=== PATIENT | male | born 1955 | race Caucasian/White ===

== ENCOUNTER 2018-04-28 17:24 | Inpatient (IN) | payer BC ==
[~2018-04-28] VITALS: Ht 180.3 cm; Wt 96.6 kg
[2018-04-28 17:27] VITALS: Ht 180.3 cm; Wt 96.6 kg
[2018-04-28 18:04] LABS: BASOPHIL % 0.5 % (0-2); PLATELET COUNT 264 x10^3mcL (130-400); RED CELL DISTRIBUTION WIDTH 13.8 % (11.5-14.5)
[2018-04-28 18:13] LABS: CALCIUM 9.1 mg/dL (8.5-10.1); CARBON DIOXIDE 31.1 mmol/L (21-32); CHLORIDE SERUM 102 mmol/L (98-107); CREATININE SERUM 0.9 mg/dL (0.7-1.3); GFR1 > 60 mL/min; GLUCOSE SERUM 100 mg/dL (74-106); POTASSIUM SERUM 4.6 mmol/L (3.5-5.1); SODIUM SERUM 141 mmol/L (136-145)
[2018-04-28 18:18] LABS: ALBUMIN 3.6 g/dL (3.4-5.0); ALKALINE PHOSPHATASE 60 U/L (46-116); ALT/SGPT 19 U/L (16-63); AST/SGOT 15 U/L (15-37); BILIRUBIN TOTAL 0.43 mg/dL (0.20-1.00); TOTAL PROTEIN, SERUM 7.7 g/dL (6.4-8.2)
[2018-04-28] MEDS ORDERED: HYDROCHLOROTH12.5 M2 PO (19:36)
[2018-04-28] MEDS ORDERED: FERROUS SULFAT325 M2 PO (19:36)
[2018-04-28] MEDS ORDERED: CRESTOR10 M1 PO (19:37)
[2018-04-28] MEDS ORDERED: CARVEDILOL6.25 M1 PO (19:37)
[2018-04-28] MEDS ORDERED: METFORMIN HYDR500 M1 PO (19:37)
[2018-04-28] MEDS ORDERED: BENAZEPRIL HYDR20 M1 PO (19:37)
[2018-04-28] MEDS ORDERED: TES100 PO (19:38)
[2018-04-28] MEDS ORDERED: NITROGLYCERIN0.4 MG SL (19:39)
[2018-04-28] MEDS ORDERED: VENTOLIN H0.09 MG/A1 INH (19:39)
[2018-04-28 19:54] LABS: MAGNESIUM 2.2 mg/dL (1.8-2.4); PHOSPHOROUS 3.5 mg/dL (2.5-4.9)
[2018-04-28 19:55] LABS: CHOLESTEROL/HDL RATIO 2.1
[2018-04-28 20:59] VITALS: BP 140/78
[2018-04-28 22:27] VITALS: BP 129/73
[2018-04-29 05:49] VITALS: BP 120/68
[2018-04-29 07:52] LABS: CALCIUM 8.6 mg/dL (8.5-10.1); CARBON DIOXIDE 29.4 mmol/L (21-32); CHLORIDE SERUM 104 mmol/L (98-107); CREATININE SERUM 0.7 mg/dL (0.7-1.3); GFR1 > 60 mL/min; GLUCOSE SERUM 77 mg/dL (74-106); MAGNESIUM 2.3 mg/dL (1.8-2.4); PHOSPHOROUS 3.6 mg/dL (2.5-4.9); POTASSIUM SERUM 3.7 mmol/L (3.5-5.1); SODIUM SERUM 140 mmol/L (136-145)
[2018-04-29 07:56] LABS: BASOPHIL % 0.3 % (0-2); PLATELET COUNT 248 x10^3mcL (130-400)
[2018-04-29 09:34] VITALS: BP 118/65
[2018-04-29 10:02] LABS: microscopic required? NO
[2018-04-29 10:28] LABS: urine erythrocyte NEGATIVE (NEGATIVE)
[2018-04-29 10:36] LABS: AMPHETAMINE QUAL UR NONE DETECTED (See below)
[2018-04-29 12:20] VITALS: BP 124/69
[2018-04-29 17:12] VITALS: BP 143/78
[2018-04-29] MEDS ORDERED: IPRATROPIUM BROM3 M2 HHN (19:20)
[2018-04-29] MEDS ORDERED: FER300 PO (19:21)
[2018-04-29] MEDS ORDERED: NIC21 TD (19:21)
[2018-04-29] MEDS ORDERED: COR6 PO (19:22)
[2018-04-29] MEDS ORDERED: LOV100I SC (19:22)
[2018-04-29] MEDS ORDERED: RAN500A PO (19:22)
[2018-04-29] MEDS ORDERED: NIT0.4 SL (19:22)
[2018-04-29] MEDS ORDERED: LOT10 PO (19:23)
[2018-04-29] MEDS ORDERED: BAY PO (19:23)
[2018-04-29] MEDS ORDERED: APAP/HYDROCODON1 T13 PO (19:23)
[2018-04-29] MEDS ORDERED: BG FS (19:24)
[2018-04-29] MEDS ORDERED: MOR2I IV (19:24)
[2018-04-29] MEDS ORDERED: TYL325 PO (19:24)
[2018-04-29] MEDS ORDERED: ZOFI IV (19:25)
[2018-04-29] MEDS ORDERED: TES100 PO (19:25)
[2018-04-29] MEDS ORDERED: DEXPF IV (19:25)
[2018-04-29] MEDS ORDERED: COL100 PO (19:25)
[2018-04-29] MEDS ORDERED: HUMULIN R100 U/1 M1 SC (19:26)
[2018-04-29 20:06] VITALS: BP 136/74
[2018-04-29 21:25] VITALS: BP 136/74
== END 2018-04-29 22:00 | disposition short-term general hospital (02) | DRG 311 ==
LOC: ED 17:24 → DU 19:21
PROVIDERS: Emergency Medicine; ADMIT Family Medicine
DX: I20.9 Angina pectoris, unspecified (principal); K85.90 Acute pancreatitis without necrosis or infection, unspecified; E11.65 Type 2 diabetes mellitus with hyperglycemia; E78.5 Hyperlipidemia, unspecified; I10 Essential (primary) hypertension; Z87.891 Personal history of nicotine dependence
CPT/HCPCS: 82962; 83880; J1650; J2270; J7030; J7050; J7620; Q0092

== ENCOUNTER → 2018-07-26 | Outpatient (CLI) | payer BC ==
[~2018-07-26] MED LIST: APAP/HYDROCODON1 T13 PO; BAY PO; BENAZEPRIL HYDR20 M1 PO; BG FS; CARVEDILOL6.25 M1 PO; COL100 PO; COR6 PO; CRESTOR10 M1 PO; DEXPF IV; FER300 PO; FERROUS SULFAT325 M2 PO; HUMULIN R100 U/1 M1 SC; HYDROCHLOROTH12.5 M2 PO; IPRATROPIUM BROM3 M2 HHN; LOT10 PO; LOV100I SC; METFORMIN HYDR500 M1 PO; MOR2I IV; NIC21 TD; NIT0.4 SL; NITROGLYCERIN0.4 MG SL; RAN500A PO; TES100 PO; TYL325 PO; VENTOLIN H0.09 MG/A1 INH; ZOFI IV
== END | disposition home or self-care (01) ==
LOC: RD 11:13
DX: I50.9 Heart failure, unspecified (principal); R06.02 Shortness of breath